=== PATIENT | female | born 1975 | race Caucasian/White ===

== ENCOUNTER 2016-06-24 23:05 | Outpatient (CLI) | payer MEDICAID, OTHER ==
[~2016-06-24] VITALS: Ht 152.4 cm; Wt 77.7 kg
[2016-06-25 00:07] VITALS: BP 105/66; PULSE 57; RESP 18
[2016-06-25] MEDS ORDERED: PRENAT PO (00:12)
--- NOTE | 2016-06-25 01:13 | RADRPT ---
PROCEDURE: ULTRASOUND BIOPHYSICAL PROFILE CLINICAL INDICATION: 41-year-old female for viability. TECHNIQUE: Multiple sonographic images were obtained in order to perform a biophysical profile The images were reviewed on a PACS workstation. COMPARISON: Ultrasound OB obtained concurrently. FINDINGS: There is a single viable intrauterine gestation. There is a vertex presentation. Cardiac activity i s present at 126 beats per minute. The placenta is right lateral. The results of the biophysical pr ofile are as follows: breathing movement = 2/2 Gross body movement = 2/2 tone = 2/2 Qualitative amniotic fluid volume = 2/2 Amniotic fluid index equals 23.1 cm. This yields a biophysical profile score of 8/8. IMPRESSION: 1. Biophysical profile score is 8/8. 2. The amniotic fluid index equals 23.1 cm. .John Yeager MD, Date Time Electronically viewed and signed by .John Yeager MD, MD on 06/25/2016 01:13 .Kailash/
--- NOTE | 2016-06-25 01:16 | RADRPT ---
PROCEDURE: ULTRASOUND OBSTETRICAL CLINICAL INDICATION: 41-year-old female with bradycardia for size and date determin ation. TECHNIQUE: Multiple sonographic images of the pelvis were obtained. The images were reviewed on a PACS workstation. COMPARISON: Ultrasound biophysical profile obtained concurrently. FINDINGS: The cervix is not well visualized. There is a single viable intrauterine gestation. Cardiac activit y is present with 121 beats per minute. There is a vertex presentation. Measurements were made in or david to determine age. The results are as follows: BPD = 9.33 cm, HC = 33.98 cm, AC = 35.12 cm, FL = 7.92 cm. This yields and estimated gestational ag e of approximately 39 weeks 1 day. The estimated date of delivery is July 01, 2016. The EFW = 3 719 +/- 556 g (8 lb 3 oz). The GP is 72%. The placenta is left lateral. There is no evidence for an abruption or placenta previa. IMPRESSION: 1. Single viable intrauterine gestation of approximately 39 weeks 1 day with vertex presentation. 2. The estimated weight is 3719 +/- 556 g (8 lb 3 oz). The GP is 72%. .John Yeager MD, MD Date Time Electronically viewed and signed by .Jhon Yeager MD, on 06/25/2016 01:16 .Kailash/
[2016-06-26] MEDS ORDERED: CALC600T5 PO (23:15)
[2016-06-26] MEDS ORDERED: FERR325C PO (23:15)
== END 2016-06-25 08:55 | disposition home or self-care (01) ==
LOC: L-D 23:05 → OBT 23:05
PROVIDERS: ATTEND Obstetrics & Gynecology
DX: O76 Abnormality in fetal heart rate and rhythm complicating labor and delivery (principal); O26.843 Uterine size-date discrepancy, third trimester; O09.523 Supervision of elderly multigravida, third trimester; Z3A.00 Weeks of gestation of pregnancy not specified; Z83.3 Family history of diabetes mellitus
CPT/HCPCS: 76815; 76818; Z7500; G0463

== ENCOUNTER 2016-06-26 23:09 | Inpatient (IN) | payer OTHER ==
[~2016-06-26] VITALS: Ht 152.4 cm; Wt 77.9 kg
[~2016-06-26 23:09] MED LIST: PRENAT PO
[2016-06-26 23:15] VITALS: Ht 152.4 cm; Wt 77.9 kg
[2016-06-26] MEDS ORDERED: CALC600T5 PO (23:15)
[2016-06-26] MEDS ORDERED: FERR325C PO (23:15)
[2016-06-26 23:35] VITALS: BP 99/62; PULSE 60; RESP 18
[2016-06-27] MEDS ORDERED: IBUPROFEN 600 MG TAB PO PRN
[2016-06-27] MEDS ORDERED: BUTORPHANOL 2 MG INJ IV PRN
[2016-06-27] MEDS ORDERED: LACTATED RINGER'S 1,000 ML IV PRN
[2016-06-27] MEDS ORDERED: AMPICILLIN 2 GM/NS (PMX) 100 ML IV ONE
[2016-06-27] MEDS ORDERED: LIDOCAINE 1% (MPF) 30 ML INJ INJ PRN
[2016-06-27] MEDS: LACTATED RINGER'S 1,000 ML IV SCH ×2 (00:14→07:46)
--- NOTE | 2016-06-27 01:09 | HP ---
Date/Time of Note Date/Time of Note DATE: 06/27/16 TIME: 01:01 OB - History Hx of Present Free Text/Dictation 41 yo [id number] @ 38wks6 days, presents to L&D with SROM, h/o prior c/d x 1 and x 5 Chief Complaint: SROM Last Menstrual Period: Sep 26, 2015 Estimated Due Date: Jul 01, 2016 : 8 Para: 6 Spontaneous : 1 Care: Good Care Obstetrical Complications: None Medical Complications: None Past Family/Social History * Past Medical, Surgical, Family and Obstetric Histories reviewed from chart. Blood Type: O+ Rubella: immune RPR/VDRL: Negative GBS Status: Positive HBsAG: Negative OB Admission Exam Vital Signs Vital Signs Vital Signs Date Time Temp Pulse Resp B/P Pulse Ox O2 Delivery O2 Flow Rate FiO2 06/26/16 23:35 97.8 60 18 99/62 Room Air Physical Exam Abdomen: WNL Cervical Dilatation: 1cm Effacement: 50% Station: -3 Membranes: Ruptured Amniotic Fluid: Clear Accelerations: Accelerations Present Decelerations: No Decelerations Varibility: Moderate Contractions on Admission: < 5 Minutes Apart Intensity: Mild OB Assessment/Plan Reason for admission: rupture of membranes Other Assessment: patient presents w SROM, h/o x 5 -reassuring status -GBS+ Other plan: amp for GBS prophylaxis admit to L&D anticipate SINTIA PALMER MD Jun 27, 2016 01:08
[2016-06-27 01:16] LABS: BASOPHILS % 0.3 % (0.0-2.0); EOSINOPHILS % 0.3 % (0.0-7.0); HEMATOCRIT 33.3 % (37.0-47.0); HEMOGLOBIN 11.4 g/dl (12.0-16.0); MEAN CORPUSCULAR HEMOGLOBIN 32.8 pg (29.0-33.0); MEAN CORPUSCULAR HGB CONC 34.1 g/dl (32.0-37.0); MEAN CORPUSCULAR VOLUME 96.1 fl (82.0-101.0); MEAN PLATELET VOLUME 10.3 fl (7.4-10.4); MONOCYTE # 0.3 10^3/ul (0.3-0.9); MONOCYTES % 5.7 % (0.0-11.0); NEUTROPHIL # 3.8 10^3/ul (1.6-7.5); NEUTROPHILS % 73.7 % (39.0-77.0); PLATELET COUNT 149 10^3/UL (140-440); RED BLOOD COUNT 3.46 10^6/ul (4.20-5.40); RED CELL DISTRIBUTION WIDTH 13.4 % (11.5-14.5); UNCORRECTED WBC 5.2 10^3/ul (4.8-10.8); WHITE BLOOD COUNT 5.2 10^3/ul (4.8-10.8)
[2016-06-27 01:22] LABS: CONDITION 1
[2016-06-27 02:12] LABS: INR 0.94; PROTIME 12.6 Sec (12.2-14.2)
[2016-06-27 02:13] LABS: PARTIAL THROMBOPLASTIN TIME 30.3 Sec (25.0-35.0)
[2016-06-27 02:15] VITALS: BP 127/69; PULSE 51; RESP 20
[2016-06-27] MEDS ORDERED: AMPICILLIN 1 GM/NS (PMX) 50 ML IV SCH (04:00)
[2016-06-27] MEDS ORDERED: OXYTOCIN 30 UNITS/LR 500 ML IV SCH ×3 (08:30)
[2016-06-27] MEDS: AMPICILLIN 1 GM/NS (PMX) 50 ML IV SCH ×3 (08:56→17:15)
[2016-06-27] MEDS ORDERED: FENTAnyl 2MCG/ML-ROPIV 0.2% 100 ML ONE (15:23)
[2016-06-27] MEDS ORDERED: FENTAnyl 2MCG/ML-ROPIV 0.2% 100 ML BAG EPI SCH (16:00)
[2016-06-27] MEDS ORDERED: NALOXONE (0.4 MG/ML) INJ IV PRN (16:00)
--- NOTE | 2016-06-27 18:46 | LDN ---
Date/Time of Note Date/Time of Note DATE: 06/27/16 TIME: 18:42 Delivery Summary Pt pushed under epidural anesthesia to an of a liveborn female infant weighing 3570g with Apgars of 9 and 9 at 1 and 5 min respectively. Easy delivery of the head followed by the anterior and posterior shoulders and the remainder of the body. The was vigorous and placed on mother's abdomen and bulb suctioned. Cord clamping was delayed. The pt received standard IV Pitocin. Cord blood was collected. The cord was doubly clamped and cut. An intact 3VC placenta delivered spontaneously. Fundus was noted to be firm. Inspection of the vagina and perineum revealed no lacerations. and mother recovering well in LDR. EBL 150ml. Placenta Delivered: Spontaneously Meconium: none Perineum intact?: Yes Anesthesia type: Epidural Estimated blood loss: 150 Sponge & Needle done & correct: Yes All needle counts correct: Yes Any foreign bodies felt in the: No Problems: Delivery Information Sex Sex: female Apgars 1 Minute: 9 5 Minute: 9 Suctioning Nose & mouth suctioned at steve: No Delee suction performed: No Umbilical Cord Umbilical cord with: 3 Vessels Cord presentations: no nuchal cord Cord Blood was obtained: Yes Mother & Baby Disposition Disposition Mom & Baby to Maternity; Good: Yes Baby to NICU: No NICOLA RENDON MD Jun 27, 2016 18:45
[2016-06-27] MEDS ORDERED: ACETAMINOPHEN 325 MG TAB PO PRN (19:00)
[2016-06-27] MEDS ORDERED: DIBUCAINE 1% 30 GM OINT PR PRN (19:00)
[2016-06-27] MEDS ORDERED: MISOPROSTOL 200 MCG TAB PR PRN ×2 (19:00)
[2016-06-27] MEDS ORDERED: OXYTOCIN 30 UNITS/LR 500 ML IV PRN ×2 (19:00)
[2016-06-27] MEDS ORDERED: METHYLERGONOVINE 0.2 MG INJ IM PRN ×2 (19:00)
[2016-06-27] MEDS ORDERED: CARBOPROST 250 MCG INJ IM PRN ×2 (19:00)
[2016-06-27] MEDS ORDERED: ONDANSETRON 4 MG INJ IV PRN (19:00)
[2016-06-27] MEDS ORDERED: DIPHENHYDRAMINE 50 MG INJ IV PRN (19:00)
[2016-06-27] MEDS ORDERED: BENZOCAINE 20% 56 ML SPRAY TOP PRN (19:00)
[2016-06-27] MEDS ORDERED: SENNA/DOCUSATE NA (8.6MG/50MG) TAB PO PRN (19:00)
[2016-06-27] MEDS ORDERED: LANOLIN 7 GM TUBE TOP PRN (19:00)
[2016-06-27 20:15] VITALS: BP 127/69; PULSE 51; RESP 20
[2016-06-27] MEDS: LACTATED RINGER'S 1,000 ML IV* SCH (22:42)
[2016-06-28] VITALS (7 sets, daily range): BP systolic 86–109; BP diastolic 53–68; PULSE 62–76; RESP 16–20
[2016-06-28] MEDS: IBUPROFEN 600 MG TAB PO SCH ×4 (00:18→17:38)
[2016-06-28] MEDS: LACTATED RINGER'S 1,000 ML IV* SCH (02:46)
[2016-06-28 08:22] LABS: EOSINOPHILS % 0.5 % (0.0-7.0); HEMATOCRIT 29.5 % (37.0-47.0); HEMOGLOBIN 10.3 g/dl (12.0-16.0); LYMPHOCYTES # 0.7 10^3/ul (0.8-2.9); LYMPHOCYTES % 11.5 % (15.0-51.0); MEAN CORPUSCULAR HEMOGLOBIN 33.4 pg (29.0-33.0); MEAN CORPUSCULAR HGB CONC 34.8 g/dl (32.0-37.0); MEAN CORPUSCULAR VOLUME 95.9 fl (82.0-101.0); MEAN PLATELET VOLUME 10.4 fl (7.4-10.4); MONOCYTE # 0.5 10^3/ul (0.3-0.9); NEUTROPHIL # 5.1 10^3/ul (1.6-7.5); PLATELET COUNT 114 10^3/UL (140-440); RED BLOOD COUNT 3.08 10^6/ul (4.20-5.40); RED CELL DISTRIBUTION WIDTH 13.6 % (11.5-14.5); UNCORRECTED WBC 6.4 10^3/ul (4.8-10.8); WHITE BLOOD COUNT 6.4 10^3/ul (4.8-10.8)
[2016-06-28 08:36] LABS: CONDITION 1
--- NOTE | 2016-06-28 12:48 | PN ---
Date/Time of Note Date/Time of Note DATE: 06/28/16 TIME: 12:47 OB Subjective Subjective Subjective day 1 Afebrile vital sign a stable abdomen soft uterus firm lochia normal extremity normal HILLARY MON MD Jun 28, 2016 12:48
[2016-06-28] MEDS ORDERED: INFLUENZA VIRUS VACCINE 0.5 ML (DISPENSING) IM* ONE (15:30)
[2016-06-29] MEDS: IBUPROFEN 600 MG TAB PO SCH ×3 (00:49→11:41)
[2016-06-29 07:15] VITALS: BP 79/52; PULSE 50; RESP 16
[2016-06-29] MEDS ORDERED: SENNA TAB PO PRN (08:00)
[2016-06-29] MEDS ORDERED: SENNA/DOCUSATE NA (8.6MG/50MG) TAB PO SCH (09:00)
[2016-06-29] MEDS ORDERED: DIPHTH/TET/ACEL PERTUSS (ADULT) 0.5 ML VIAL IM* ONE (09:00)
[2016-06-29] MEDS ORDERED: INFLUENZA VIRUS VACCINE 0.5 ML (DISPENSING) IM* ONE (09:00)
--- NOTE | 2016-06-29 11:10 | PD.PPDC ---
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
== END 2016-06-29 13:10 | disposition home or self-care (01) | DRG 775 ==
LOC: OBT 23:09 → L-D 23:09 → OBT 06-27 00:48 → L-D 06-27 00:51 → PP1 06-27 20:11
PROVIDERS: ADMIT Obstetrics & Gynecology; ATTEND Obstetrics & Gynecology
PROC: 10E0XZZ Delivery of Products of Conception, External Approach (ICD-10-PCS; principal; 2016-06-27)
PROC: 10907ZC Drainage of Amniotic Fluid, Therapeutic from Products of Conception, Via Natural or Artificial Opening (ICD-10-PCS; 2016-06-27)
DX: O34.211 Maternal care for low transverse scar from previous cesarean delivery (principal); O99.824 Streptococcus B carrier state complicating childbirth; Z3A.38 38 weeks gestation of pregnancy; Z37.0 Single live birth
CPT/HCPCS: 36415; 62319; 84112; 85025; 85610; 85730; 86592; 86900; 86901; 90686; 90715; G0463; J0290; J2590; J3010; J7120

== ENCOUNTER 2018-01-03 01:04 | Emergency (ER) | END 2018-01-03 03:34 | disposition home or self-care (01) ==